=== PATIENT | female | born 1985 | race Caucasian/White ===

== ENCOUNTER 2018-03-24 14:52 | Emergency (ER) | payer MEDICAID ==
[~2018-03-24] VITALS: Ht 165.1 cm; Wt 72.2 kg
[~2018-03-24 14:52] MED LIST: CLON-528 PO; DIPH25CA83 PO; NORCO10T PO; PHEN100C4 PO
[2018-03-24 15:04] VITALS: BP 126/78
--- NOTE | 2018-03-24 16:54 | NUR ---
PT CALLED TO TRIAGE FOR LAB DRAW, PT WAS NOT IN LOBBY
== END 2018-03-24 18:00 | disposition left against medical advice (07) ==
LOC: ER 14:52
DX: L02.31 Cutaneous abscess of buttock (principal); Z53.21 Procedure and treatment not carried out due to patient leaving prior to being seen by health care provider

== ENCOUNTER 2021-07-03 09:16 | Emergency (ER) | payer MEDICAID ==
[~2021-07-03] VITALS: Ht 165.1 cm; Wt 106.8 kg
[2021-07-03 09:53] LABS: BASOPHILS % (AUTO) 0.6 % (0-1); EOSINOPHILS # (AUTO) 0.1 X10'3 (0-0.9); EOSINOPHILS % (AUTO) 1.8 % (0-6); HEMATOCRIT 38.3 % (35.0-45.0); HEMOGLOBIN 13.2 g/dl (12.0-16.0); LYMPHOCYTES # (AUTO) 3.4 X10'3 (1.1-4.8); MEAN CORPUSCULAR HEMOGLOBIN 28.2 PG (27.0-31.0); MEAN CORPUSCULAR HGB CONC 34.4 g/dL (33.0-36.5); MEAN PLATELET VOLUME 7.6 FL (7.4-10.4); MONOCYTES # (AUTO) 0.4 X10'3 (0-0.9); MONOCYTES % (AUTO) 4.9 % (2-12); NEUTROPHILS # (AUTO) 3.8 X10'3 (1.8-7.7); NEUTROPHILS % (AUTO) 48.7 % (42-75); PLATELET COUNT 406 X10'3 (140-440); RED BLOOD COUNT 4.67 X10'6 (4.20-5.60); WHITE BLOOD COUNT 7.7 X10'3 (4.5-11.0)
[2021-07-03 10:01] LABS: CLARITY,URINE SLIGHTLY CLOUDY (Clear); COLOR,URINE YELLOW (Yellow); GLUCOSE, URINE NEGATIVE (Neg); KETONES,URINE TRACE mg/dl (Neg); LEUKOCYTE ESTERASE ,URINE NEGATIVE (Neg); NITRITES, URINE NEGATIVE (Neg); OCCULT BLOOD,URINE NEGATIVE (Neg); PH,URINE 6.5 (4.8-8.0); PROTEIN,URINE NEGATIVE (Neg); UROBILINOGEN,URINE 0.2 E.U/dL (0.2-1.0)
[2021-07-03 10:03] LABS: UA COLLECTION TYPE CLN CATCH MIDSTREAM
[2021-07-03 10:11] LABS: URINE HCG NEGATIVE (NEG)
[2021-07-03 10:14] LABS: ALANINE AMINOTRANSFERASE 31 U/L (12-78); ALBUMIN 3.6 G/DL (3.4-5.0); ALBUMIN/GLOBULIN RATIO 0.8 (1.1-1.5); ALKALINE PHOSPHATASE 102 IU/L (46-116); ASPARTATE AMINO TRANSFERASE 10 U/L (10-37); BILIRUBIN,TOTAL 0.2 MG/DL (0.1-1.0); BLOOD UREA NITROGEN 9 MG/DL (7-18); BUN/CREATININE RATIO 9.2 (6.6-38.0); C-REACTIVE PROTEIN 0.48 MG/DL (0.0-0.5); CALCIUM 9.1 MG/DL (8.5-10.1); CHLORIDE 102 MMOL/L (99-107); CREATININE 0.98 MG/DL (0.40-0.90); GLUCOSE 94 MG/DL (70-104); LIPASE < 50 U/L (73-393); POTASSIUM 4.1 MMOL/L (3.5-5.1); SODIUM 139 MMOL/L (135-145); eGFR 64 ML/MIN
[2021-07-03] MEDS ORDERED: ketorolac trometh. 30mg/ml inj. IM ONE (10:15)
[2021-07-03] MEDS ORDERED: HYDROcodone/acetaminophen 5mg/325mg tablet PO ONE (10:15)
[2021-07-03 10:17] LABS: BACTERIA,URINE 3+ /HPF (Neg); MUCUS STRANDS MODERATE /LPF (Neg); RBC,URINE NONE SEEN /HPF (0-2); SQUAMOUS EPITHELIAL CELL,UR MANY /LPF (FEW); WBC,URINE 0-4 /HPF (0-4)
[2021-07-03 10:21] LABS: ANION GAP 10 (8-16); TOTAL CARBON DIOXIDE 26.7 MMOL/L (24-32)
--- NOTE | 2021-07-03 10:26 | NUR ---
back from ct scan via wheelchair in stable condition.
[2021-07-03] MEDS ORDERED: DOCU-148 PO (10:55)
[2021-07-03 11:03] VITALS: BP 125/79
== END 2021-07-03 11:04 | disposition home or self-care (01) ==
LOC: ER 09:17
DX: R10.32 Left lower quadrant pain (principal); I10 Essential (primary) hypertension; Z56.0 Unemployment, unspecified; F15.10 Other stimulant abuse, uncomplicated; F11.10 Opioid abuse, uncomplicated; Z88.0 Allergy status to penicillin; Z79.899 Other long term (current) drug therapy
CPT/HCPCS: 36415; 74176; 80053; 81001; 81025; 83690; 84145; 85025; 86140; 96372; 99284; J1885